=== PATIENT | female | born 1950 | race Caucasian/White ===

== ENCOUNTER 2018-11-15 18:52 | Emergency (ER) | payer OTHER ==
[~2018-11-15] VITALS: Ht 160 cm; Wt 67.1 kg
[2018-11-15] MEDS ORDERED: SYMBICORT 16010.2 GM (19:51)
[2018-11-15] MEDS ORDERED: METH16TA (19:51)
[2018-11-16] MEDS ORDERED: VENTOLIN HFA18 GM IH (05:34)
[2018-11-16] MEDS ORDERED: PULMICORT1 MG/2 ML IH (05:34)
[2018-11-16] MEDS ORDERED: ALBUTEROL2.5 MG/3 M IH (05:34)
== END 2018-11-16 05:45 | disposition home or self-care (01) ==
LOC: ER 18:52
DX: J45.901 Unspecified asthma with (acute) exacerbation (principal); J10.1 Influenza due to other identified influenza virus with other respiratory manifestations

== ENCOUNTER 2019-10-27 18:06 | Emergency (ER) | payer OTHER ==
[~2019-10-27] VITALS: Ht 162.6 cm; Wt 68.0 kg
[~2019-10-27 18:06] MED LIST: ALBUTEROL2.5 MG/3 M IH; METH16TA; PULMICORT1 MG/2 ML IH; SYMBICORT 16010.2 GM; VENTOLIN HFA18 GM IH
[2019-10-27] MEDS ORDERED: BUDEO.25 IH (18:49)
[2019-10-27] MEDS ORDERED: XOPENEX0.63 MG/3 IH (18:49)
== END 2019-10-27 22:58 | disposition home or self-care (01) ==
LOC: ER 18:06
DX: J45.998 Other asthma (principal)

== ENCOUNTER 2022-04-05 13:31 | Inpatient (IN) | payer OTHER ==
[~2022-04-05] VITALS: Ht 162.6 cm; Wt 70.8 kg
[~2022-04-05 13:31] MED LIST changes: +BUDEO.25 IH; +XOPENEX0.63 MG/3 IH
--- NOTE | 2022-04-05 13:37 | NUR ---
SE RECIBE PTE ALERTA Y ORIENTADA X3,REFIERE HABERSE CAIDO AN LA CASA ,REFIERE TENER FRACTURA DE 4 COSTILLAS,REFIERE TENER DIFIUCULTAD RESPIRATORIA,ES PTE DEL VERONICA LEONG EL CUAL LA REFIERE A LA EMELINA DE ER.
[2022-04-05] MEDS ORDERED: SINGULAIR 10MG10 MG PO (13:43)
[2022-04-05] MEDS ORDERED: NORVASC2.5 M1 PO (13:43)
[2022-04-05] MEDS ORDERED: [UNRECOGNIZED DRUG - OTHER] (13:43)
--- NOTE | 2022-04-05 17:53 | NUR ---
PTE EVALUADO POR MD JODI DAVIDENA [place] MED. SE EDUCA A PT SOBRE EL MISO Y REFEIRER ENTENDER. SE EJECUUTAN ORDNES BAJO MEDIDAS ACEPTICAS. PT PEND A CT
[2022-04-06] MEDS ORDERED: CITALOPRAM HBR40 MG (08:23)
[2022-04-15] MEDS ORDERED: XOPENEX CO1.25 MG/0. IH (12:27)
[2022-04-15] MEDS ORDERED: POM (MEDICAMENTO EN PO (12:27)
[2022-04-15] MEDS ORDERED: MONTELUKAST SOD10 MG PO (12:27)
== END 2022-04-15 13:59 | disposition home or self-care (01) | DRG 183 ==
LOC: ER 13:31 → SURG 22:52 → MEDI 04-13 11:31 → SURG 04-13 11:34
PROVIDERS: ADMIT Internal Medicine; ATTEND Internal Medicine
PROC: BB24YZZ Computerized Tomography (CT Scan) of Bilateral Lungs using Other Contrast (ICD-10-PCS; 2022-04-05)
PROC: 0W9B30Z Drainage of Left Pleural Cavity with Drainage Device, Percutaneous Approach (ICD-10-PCS; principal; 2022-04-06)
PROC: 3E0F7GC Introduction of Other Therapeutic Substance into Respiratory Tract, Via Natural or Artificial Opening (ICD-10-PCS; 2022-04-06)
DX: S22.42XA Multiple fractures of ribs, left side, initial encounter for closed fracture (principal); S27.1XXA Traumatic hemothorax, initial encounter; J98.11 Atelectasis; J90 Pleural effusion, not elsewhere classified; J45.901 Unspecified asthma with (acute) exacerbation; W18.39XA Other fall on same level, initial encounter; Y92.091 Bathroom in other non-institutional residence as the place of occurrence of the external cause; I10 Essential (primary) hypertension; J06.9 Acute upper respiratory infection, unspecified

== ENCOUNTER 2022-07-25 16:07 | Emergency (ER) | payer OTHER ==
[~2022-07-25] VITALS: Ht 162.6 cm; Wt 59.9 kg
[~2022-07-25 16:07] MED LIST changes: +CITALOPRAM HBR40 MG; +MONTELUKAST SOD10 MG PO; +NORVASC2.5 M1 PO; +POM (MEDICAMENTO EN PO; +SINGULAIR 10MG10 MG PO; +XOPENEX CO1.25 MG/0. IH; +[UNRECOGNIZED DRUG - OTHER]
[2022-07-25] MEDS ORDERED: CIPRO500 MG PO (21:33)
[2022-07-25] MEDS ORDERED: METRONIDAZOLE500 MG PO (21:33)
[2022-07-25] MEDS ORDERED: PEPCID AC20 MG PO (21:33)
[2022-07-25] MEDS ORDERED: INTESTINEX680 M1 PO (21:33)
[2022-07-25] MEDS ORDERED: LEVSIN/SL0.125 MG SL (21:33)
== END 2022-07-25 21:46 | disposition home or self-care (01) ==
LOC: ER 16:07
DX: K57.92 Diverticulitis of intestine, part unspecified, without perforation or abscess without bleeding (principal)

== ENCOUNTER 2024-03-06 16:19 | Outpatient (CLI) | payer OTHER ==
[~2024-03-06 16:19] MED LIST changes: +CIPRO500 MG PO; +INTESTINEX680 M1 PO; +LEVSIN/SL0.125 MG SL; +METRONIDAZOLE500 MG PO; +PEPCID AC20 MG PO
== END 2024-03-06 16:22 | disposition home or self-care (01) ==
LOC: RAD 16:19
DX: J45.901 Unspecified asthma with (acute) exacerbation (principal)